=== PATIENT | female | born 1965 | race African-American/Black ===

== ENCOUNTER → 2016-05-22 | Outpatient (CLI) | payer MEDICARE, OTHER ==
[~2016-05-22] MED LIST: ASPI-482 PO; CONTRAST GIVEN MC PRN; ESTR1TAB PO; GABA600T2 PO; IOHEXOL 240 MG/ML 50ML VIAL. PO ONE; IOHEXOL 300 MG/ML 75 ML VIAL IV ONE; LISI10TA2 PO; SIMV20TA3 PO; SITA1TAB7 PO
--- NOTE | 2016-05-22 11:22 | RAD ---
CT of the chest, abdomen and pelvis with contrast, 05/22/2016: History: Restaging jejunal cancer Multidetector CT imaging was performed following oral and IV administration of contrast. Multiplanar reconstructions were produced. Comparison is made to a study from 05/23/2015. No mediastinal or hilar adenopathy is identified. There are calcified right hilar and mediastinal nodes compatible with old granulomatous disease. The thoracic aorta is unremarkable. There are persistent linear opacities in the lower chest bilaterally compatible with scarring. No pulmonary mass or consolidation is seen. There is no evidence of pleural fluid. There is a mild thoracolumbar scoliosis with mild scattered marginal spurs. No hepatic abnormality is detected. The gallbladder is unremarkable. No pancreatic abnormality is seen. The spleen is of normal size. No renal or adrenal abnormality is detected. The abdominal aorta shows no abnormality. No abdominal or pelvic adenopathy is seen. Colonic diverticula are present, most numerous in the sigmoid colon. There are surgical sutures related to a small bowel loop in the left midabdomen. There appears to be mild mural thickening at this level, similar to that seen on an older study from 05/22/2014. This probably represents scarring at the surgical site. There is only slight dilatation of an adjacent jejunal loop. No bowel obstruction is evident. No free fluid or free air is evident in the abdomen or pelvis. IMPRESSION: 1. Mild mural thickening of a small bowel loop at the surgical site in the left midabdomen appears to be unchanged and probably represents scarring. 2. Colonic diverticulosis. 3. No CT evidence of metastatic disease in the chest, abdomen or pelvis. PQRS Compliance Statement: One or more of the following individualized dose reduction techniques were utilized for this examination: 1. Automated exposure control 2. Adjustment of the mA and/or kV according to patient size 3. Use of iterative reconstruction technique
== END | disposition home or self-care (01) ==
LOC: CT 09:00
PROVIDERS: ATTEND Internal Medicine Hematology & Oncology
DX: C17.1 Malignant neoplasm of jejunum (principal); K57.30 Diverticulosis of large intestine without perforation or abscess without bleeding
CPT/HCPCS: 71260; 74177